=== PATIENT | female | born 1985 | race Caucasian/White ===

== ENCOUNTER → 2021-09-19 17:04 | Outpatient (CLI) | payer OTHER, SELFPAY ==
[2021-09-19 20:39] LABS: Urine N gonorrhoeae NOT DETECTED
[2021-09-19 20:55] LABS: Urine Chlamydia NOT DETECTED
== END ==
PROVIDERS: PCP Emergency Medicine; Visit Provider Obstetrics & Gynecology
DX: Z34.81 Encounter for supervision of other normal pregnancy, first trimester (principal); Z3A.09 9 weeks gestation of pregnancy
CPT/HCPCS: 87491; 87591

== ENCOUNTER → 2021-09-23 11:56 | Outpatient (CLI) | payer OTHER, SELFPAY ==
[2021-09-23 12:57] LABS: Appearance Urine UA CLEAR; Bilirubin Urine UA NEGATIVE (NEGATIVE); Color Urine UA YELLOW; Glucose Urine UA NEGATIVE (Negative); Ketones Urine UA NEGATIVE (NEGATIVE); Leukocyte Esterase Urine UA NEGATIVE (NEGATIVE); Nitrite Urine UA NEGATIVE (Negative); Occult Blood Urine UA NEGATIVE (Negative); Protein Urine UA NEGATIVE (Negative); Specific Gravity Urine UA 1.015 (1.000-1.035); Urobilinogen Urine UA 0.2 E.U./dL (0.2)
[2021-09-23 12:58] LABS: pH Urine UA 7.5 (4.5-8.0)
[2021-09-23 13:01] LABS: Add Manual Diff / Slide Review NO; Basophils Absolute Auto 0 /uL (0-100); Basophils Percent Auto 0.4 % (0-2); Eosinophils Absolute Auto 100 /uL (0-450); Eosinophils Percent Auto 0.6 % (2-4); Hematocrit 38.2 % (36-46); Hemoglobin 13.5 g/dL (12.0-16.0); Lymphocytes Absolute Auto 2300 /uL (1100-4500); Mean Corpuscular HGB Conc 35.2 % (30-36); Mean Corpuscular Hemoglobin 31.5 PG (26-34); Mean Corpuscular Volume 89.7 fL (80-100); Monocytes Absolute Auto 500 /uL (0-900); Monocytes Percent Auto 4.6 % (3-14); Neutrophils Absolute Auto 7400 /uL (1500-7000); Neutrophils Percent Auto 72.4 % (50-75); Platelet Count 255 X10^3/uL (150-400); Red Blood Cell Count 4.26 X10^6/uL (4.0-5.2); Red Cell Distribution Width 13.4 % (11.6-14.8); White Blood Cell Count 10.2 X10^3/uL (4.5-11.0)
[2021-09-23 17:01] LABS: HIV 1 & 2 Ab/Ag 4th Gen Combo NEGATIVE (NEGATIVE); Hep C Virus Ab w/Reflex Quant NEGATIVE s/c (NEGATIVE); Hepatitis B Surface Antigen NEGATIVE s/c (NEGATIVE); Rubella Antibody IgG 30.8 IU/mL (>15)
[2021-09-24 06:08] LABS: RPR Screen Non Reactive (Non Reactive)
[2021-09-24 08:09] LABS: Varicella IgG Antibody 1141 index (Immune >165)
== END ==
PROVIDERS: PCP Emergency Medicine; Referring Provider Obstetrics & Gynecology; Visit Provider Obstetrics & Gynecology
DX: O09.511 Supervision of elderly primigravida, first trimester (principal)
CPT/HCPCS: 36415; 80055; 81003; 86787; 86803; 86850; 86900; 86901; 87086; 87389

== ENCOUNTER → 2021-11-19 14:08 | Outpatient (CLI) | payer OTHER, SELFPAY ==
[2021-11-22 19:31] LABS: Gest Age on Col Date 18.3 weeks (.); Insulin Dep Diabetes No (.); OSBR Risk 1IN 10000 (.); Results Report (.); Test Results *Screen Negative* (.)
== END ==
PROVIDERS: PCP Emergency Medicine; Referring Provider Obstetrics & Gynecology; Visit Provider Obstetrics & Gynecology
DX: Z34.82 Encounter for supervision of other normal pregnancy, second trimester (principal); Z3A.18 18 weeks gestation of pregnancy
CPT/HCPCS: 36415; 82105

== ENCOUNTER → 2021-12-16 10:47 | Outpatient (CLI) | payer OTHER, SELFPAY ==
--- NOTE | 2021-12-16 10:50 | DI.US.S_ITS ---
PROCEDURE: US OB >= 14 WEEKS FETUS INDICATIONS: ANATOMY OUTSIDE/PRIOR DATING DATA: Last menstrual period (LMP): 07/14/2022 LMP-based estimated date of delivery (BLANCA): 04/20/2022 First dating scan (date and location): 12/16/2021 Estimated date of delivery (BLANCA) from first dating scan: 04/16/2022 The calculations are made using the working BLANCA of 04/20/2022 TECHNIQUE: Real-time scanning was performed of the fetus, with image documentation and biometric measurements. Endovaginal scanning: Not indicated COMPARISON: None. FINDINGS: General: A single living intrauterine gestation is present. Presentation: Breech Placenta: Placental position is left posterior, without previa. Amniotic fluid index: 16.7 cm, normal range is 5-24 cm. Single deepest vertical pocket is 6.3 cm. heart rate: 139 beats per minute. Maternal cervical canal: 5.1 cm long. Normal lower limit is 2.5 cm. biometrics: Biparietal diameter: 5.3 cm, 22 weeks, 1 day Head circumference: 20.1 cm, 22 weeks, 2 days Abdominal circumference: 19.1 cm, 23 weeks, 6 days Femur length: 3.8 cm, 22 weeks, 2 days. Clinically estimated gestational age: 22 weeks, 1 day Composite gestational age from present scan: 22 weeks, 5 days Estimated weight and percentile: 557 g, 86% Anatomic survey: Neuro: Ventricles are non-dilated at less than 10 mm. Cisterna magna is normal at 3-11 mm. Cerebellum is normal in size and morphology. Nuchal skin fold: Normal at less than 6 mm between 14-21 weeks gestational age. Face: Nose and lips, facial profile are normal. Spine: No evidence for spina bifida. Heart: 4-chambered heart is present, with normal ventricular outflow tracts. Diaphragm: Diaphragm is intact. Stomach: Left-sided stomach is present. Kidneys: Mild prominence of bilateral renal pelvis is seen measures up to 4.4 mm in diameter on right side and 5.3 mm in diameter on the left side Normal is less than 5 mm in 2nd trimester, less than 7 mm in 3rd trimester. Cord: 3-vessel cord has orthotopic insertion. Bladder: Normal in size. Extremities: All 4 extremities identified. IMPRESSION: 1. Single live intrauterine gestation with fetus in breech presentation. heart rate is 139 beats per minute. Normal amount of amniotic fluid. Estimated weight is at 86%. 2. Borderline bilateral renal pelviectasis worse on the left side, suggest sonographic follow-up. Rest of the anatomic survey is within normal limits. We strive to produce accurate, complete, and clear reports of imaging services. To assist us in improving patient care, this report was composed using standard report templates and voice recognition software. Therefore, it may contain abnormal punctuation, insertions and/or omissions. Occasional wrong-word or sound-alike substitutions may occur. Though we review the report and make efforts to correct it, we do recommend that the report be read carefully in proper context to recognize any text inaccuracies. Dictated by: Nacho Ugalde M.D. on 12/16/2021 at 13:21 Approved by: Nacho Ugalde M.D. on 12/16/2021 at 13:26
== END ==
PROVIDERS: PCP Emergency Medicine; Referring Provider Obstetrics & Gynecology; Visit Provider Obstetrics & Gynecology
DX: Z34.82 Encounter for supervision of other normal pregnancy, second trimester (principal); Z3A.22 22 weeks gestation of pregnancy
CPT/HCPCS: 76811

== ENCOUNTER → 2022-03-27 16:52 | Outpatient (CLI) | payer OTHER, SELFPAY ==
[2022-03-28 14:00] LABS: Strep Grp B PCR POS for Grp B Strep
== END ==
PROVIDERS: PCP Emergency Medicine; Visit Provider Obstetrics & Gynecology
DX: Z34.83 Encounter for supervision of other normal pregnancy, third trimester (principal); Z3A.36 36 weeks gestation of pregnancy
CPT/HCPCS: 87653

== ENCOUNTER 2022-03-31 20:28 | Observation (INO) | payer OTHER, SELFPAY ==
--- NOTE | 2022-03-31 21:06 | P.TNLD_ITS ---
Visit Information Visit Information Date of evaluation: 03/31/22 Primary OB Provider: Lakeshia Bernard On-call OB Provider: Christina Smith Comments/Additional reasons for admission: 37yo at 37w1d here for leaking of fluid. The pt reports feeling a leaking of fluid earlier this evening. She has not continued leaking since then. No vaginal bleeding. She is having more frequent abdominal tightening but does not feel it is painful like a full contraction. 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) Osteopenia (~2009) Surgical History (Updated 08/31/21 @ 21:47 by Loreta Brower) Anesthesia H/O hand surgery (~1990) History of colposcopy with cervical biopsy S/P skin biopsy [place] teeth extracted Family History (Updated 08/31/21 @ 21:49 by Loreta Brower) Grandfather Hypertension High cholesterol Stroke Grandmother Age: 84 Hypertension High cholesterol History of heart disease Grandmother Age: 81 Breast cancer Lung cancer Colon cancer Mental health problem Sister Age: 42 Diabetes mellitus Social History marital status: number of children: 3 (1 is stepchild) household members: spouse and children lives independently: Yes housing: house pets and animals: Yes (2 dogs, cat, livestock) education level: college ([employer] degree) occupational status: employed (desk job; 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[employer]) current occupational exposures/hazards: Yes (aware of farm animal precautions) special jesus needs: No travel history: over 6 months ago seatbelt use: always water heater temp set < 120 deg: Yes working smoke detector in home: Yes fire extinguisher in home: Yes carbon monox detector in home: Yes firearms in home: Yes do you feel safe at home: Yes Smoking Status: Former smoker (Quit age 26) second hand exposure: No alcohol intake: former substance use type: does not use during the past year weight has: remained stable well-balanced diet: daily or most days daily servings fruits/ve-4 caffeine: Yes (Aware of and within 200 mg limit) Type(s) of exercise: walking Evaluation Evaluation Baseline heart rate: 150 Variability: Moderate (11-25) monitor accelerations: Present Monitor Decelerations: Absent Category of Tracing: Reactive Cervical dilation (cm): 1 Cervical effacement (%): 50 station: -1 Comments: Contractions 2-9 minutes apart Diagnosis, Plan/Disposition Final Diagnosis (1) 37 weeks gestation of : Status: Acute Plan/Disposition Plan: 37yo at 37w1d here due to concerns for ROM. Amniosure negative. Pt is having contractions, with hx of rapid labor, but cervical exam unchanged. Stable for d/c home. OB Disposition: home
== END 2022-03-31 21:30 | disposition home or self-care (01) ==
LOC: LABOR 20:33
PROVIDERS: Admitting Provider Family Medicine; PCP Emergency Medicine; Referring Provider Obstetrics & Gynecology; Visit Provider Family Medicine
DX: Z03.71 Encounter for suspected problem with amniotic cavity and membrane ruled out (principal); O47.1 False labor at or after 37 completed weeks of gestation; Z3A.37 37 weeks gestation of pregnancy
CPT/HCPCS: 59025; 84112; G0378; G0379

== ENCOUNTER 2022-04-16 07:02 | Inpatient (IN) | payer BC, SELFPAY ==
[2022-04-16 08:07] VITALS: BP 124/84
[2022-04-16 08:12] LABS: Add Manual Diff / Slide Review NO; Basophils Absolute Auto 0 /uL (0-100); Basophils Percent Auto 0.3 % (0-2); Eosinophils Absolute Auto 200 /uL (0-450); Eosinophils Percent Auto 2.4 % (2-4); Hemoglobin 10.8 g/dL (12.0-16.0); Lymphocytes Absolute Auto 1600 /uL (1100-4500); Lymphocytes Percent Auto 16.9 % (25-40); Mean Corpuscular HGB Conc 33.7 % (30-36); Mean Corpuscular Hemoglobin 30.5 PG (26-34); Mean Corpuscular Volume 90.4 fL (80-100); Monocytes Absolute Auto 800 /uL (0-900); Monocytes Percent Auto 8.1 % (3-14); Neutrophils Absolute Auto 6700 /uL (1500-7000); Neutrophils Percent Auto 72.3 % (50-75); Platelet Count 175 X10^3/uL (150-400); Red Blood Cell Count 3.54 X10^6/uL (4.0-5.2); Red Cell Distribution Width 13.6 % (11.6-14.8); White Blood Cell Count 9.3 X10^3/uL (4.5-11.0)
[2022-04-16 08:29] LABS: COVID19 -Nasal RAPID Negative (Negative)
[2022-04-16] MEDS: AMPICILLIN 2,000 MG in SODIUM CHLORIDE 0.9% 100 ML 200 MG IV (08:29)
[2022-04-16] MEDS: LACTATED RINGERS 1,000 ML 100 ML IV (08:29)
--- NOTE | 2022-04-16 08:29 | PM.OBHP.IH.1 ---
OB HPI Date/Time Date of admission: 04/16/22 Date Patient Seen: 04/16/22 Time Patient Seen: 08:29 History of Present Condition Chief complaint: INDUCTION BLANCA Calculator Estimated Delivery Date Method Current WG Current Estimate 04/20/22 LMP (Certain) 39w 3d Other Estimates 04/16/22 Ultrasound #1 40w 0d Estimated Gestational Age (weeks): 39+3 : 4 Para: 2 care: good care, initiated at week # (9), number of visits (11) and pounds weight gain (25) Dating criteria OB: LMP confirmed by 1st trimester US Ultrasounds: normal 1st trimester US, abnormal US findings (initially thought no corpus callosum, f/u u/s normal at ) and other (borderline pelviectasis) Obstetrical complications: none Medical complications OB: none Indications Indication for induction OB: maternal distance, history of rapid labor (with 2nd) and other (AMA) Preadmission Labs Last OB Lab Results: Blood Type O Positive 09/23/21 12:19 Antibody Screen Negative 09/23/21 12:19 Hematocrit 32.0 % (36-46) L 04/16/22 07:50 Hemoglobin 10.8 g/dL (12.0-16.0) L 04/16/22 07:50 Hepatitis B Surface Antigen Negative s/c (NEGATIVE) 09/23/21 12:19 Hepatitis C Antibody Negative s/c (NEGATIVE) 09/23/21 12:19 Rubella Antibody 30.8 IU/mL (>15) 09/23/21 12:19 Varicella-Zoster IgG Antibody 1141 index (Immune >165) 09/23/21 12:19 Group B Streptococcus (PCR) Pos for grp b strep H 03/27/22 16:52 -: Chlamydia screen: negative, Gonorrhea screen: negative and Urine: negative -: PAP smear: Normal Genetic Screens: Cell-free DNA: Normal and Alpha-fetoprotein: Normal External Labs -: Urine: negative Prior (ies) Past Pregnancies Del. Date GA/Weeks Labor Lgth Wt Sex Route Outcome Anesthesia Place Delv Breastfeed Preg Comp Name 06/15/08 41 16 9 lb 14 oz Male vaginal live - full term IH 10 months none [place] 06/17/11 40 4 Male vaginal live - full term IH 4 months other [place] 08/02/20 11 spontaneous Delivery Date: 06/17/11 Last Updated by: Jennifer Srinivasan RN Relapse of anorexia during that Evaluation Evaluation Baseline heart rate: 145 Variability: Moderate (11-25) monitor accelerations: Present Monitor Decelerations: Absent Contraction Frequency (minutes): 4 Uterine Contraction Intensity: Moderate Status: Category l Dilation (cm): 2 Effacement (%): 75 station: -1 [facility] Medical History (Updated 03/31/22 @ 21:13 by Christina Smith MD) Abnormal Pap smear of cervix (~2018) Anorexia (11/08/10) Anxiety and depression (~2007) Chicken pox COVID-19 Depression 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) Osteopenia (~2009) Surgical History (Updated 08/31/21 @ 21:47 by Loreta Broewr) Anesthesia H/O hand surgery (~1990) History of colposcopy with cervical biopsy S/P skin biopsy [place] teeth extracted Family History (Updated 08/31/21 @ 21:49 by Loreta Brower) Grandfather Hypertension High cholesterol Stroke Grandmother Age: 84 Hypertension High cholesterol History of heart disease Grandmother Age: 81 Breast cancer Lung cancer Colon cancer Mental health problem Sister Age: 42 Diabetes mellitus Social History marital status: number of children: 3 (1 is stepchild) household members: spouse and children lives independently: Yes housing: house pets and animals: Yes (2 dogs, cat, livestock) education level: college ([employer]aura's degree) occupational status: employed (desk job; 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[employer]) current occupational exposures/hazards: Yes (aware of farm animal precautions) special jesus needs: No travel history: over 6 months ago seatbelt use: always water heater temp set < 120 deg: Yes working smoke detector in home: Yes fire extinguisher in home: Yes carbon monox detector in home: Yes firearms in home: Yes do you feel safe at home: Yes Smoking Status: Former smoker second hand exposure: No alcohol intake: former substance use type: does not use during the past year weight has: remained stable well-balanced diet: daily or most days daily servings fruits/ve-4 caffeine: Yes (Aware of and within 200 mg limit) Type(s) of exercise: walking Meds Home Medications and Allergies Home Medications Medication Instructions Recorded Confirmed Type prenat.vits,linda,[id number] 1 tab PO DAILY 08/21/21 04/09/22 History sertraline 150 mg capsule 150 mg PO DAILY 08/21/21 04/09/22 History Allergies Allergy/AdvReac Type Severity Reaction Status Date / Time No Known Allergies Allergy Verified 04/16/22 07:58 OB Exam Narrative Exam Narrative: Generally: Patient is sitting up in bed, no acute distress Lungs: Clear to auscultation bilaterally Cardiovascular: Regular rate and rhythm Fundal height: 40 cm Estimated weight: 8-1/2 lb Extremities: No edema Objective Labs 04/16/22 07:50 Labs: Laboratory Results - last 24 hr 04/16/22 07:50 WBC 9.3 RBC 3.54 L Hgb 10.8 L Hct 32.0 L MCV 90.4 MCH 30.5 MCHC 33.7 RDW 13.6 Plt Count 175 Neut % (Auto) 72.3 Lymph % (Auto) 16.9 L [place] % (Auto) 8.1 Eos % (Auto) 2.4 Baso % (Auto) 0.3 Neut # (Auto) 6700 Lymph # (Auto) 1600 [place] # (Auto) 800 Eos # (Auto) 200 Baso # (Auto) 0 Assessment and Plan Assessment and Plan Assessment and Plan narrative: Assessment: 37-year-old 4 para 2 at 39-,3/7 weeks gestation for induction of labor due to advanced maternal age, maternal distance from the hospital, and history of rapid labor GBS positive Plan: Begin GBS prophylaxis After second dose AROM Low-dose Pitocin if needed Expected management to spontaneous vaginal delivery Time Spent with Patient Total time spent with greater than 50% in coordination of care (as documented) at patient's floor/unit and/or counseling patient:: 15-24 minutes
[2022-04-16 09:45] LABS: Influenza A - CEPHEID Flu A NEGATIVE (NEGATIVE); Influenza B - CEPHEID Flu B NEGATIVE (NEGATIVE); Respiratory Syncytial Virus Negative (Negative)
[2022-04-16 09:46] LABS: COVID-19 CEPHEID 4-PLEX PCR Negative (Negative)
[2022-04-16] MEDS: AMPICILLIN 1,000 MG in SODIUM CHLORIDE 0.9% 100 ML 200 MG IV ×3 (12:58→21:23)
[2022-04-16] MEDS: OXYTOCIN PREMIX 30 UNIT/500 ML PLAST..BAG IV (15:40)
--- NOTE | 2022-04-16 20:41 | PM.OBPNLAB ---
Date/Time Date Patient Seen: 04/16/22 Time Patient Seen: 20:41 Pain Control Pain control: tolerating well Pelvic Exam Dilation (cm): 2 Effacement (%): 75 station: -1 Amniotic membrane status: Intact Contractions Contractions on admission: irregular Monitor mode: External Contraction frequency (min): 5 Contraction duration (min): 1 Contraction pattern: Irregular Contraction intensity: Mild Status status: Category l Heart Rate Baseline: 140 Monitor Accelerations: Present Monitor Decelerations: Absent Monitor Variability: Moderate Assessment and Plan Assessment: induction ongoing Comments: AROM with copious clear amniotic fluid Pitocin if no regular contractions in 3 hours Epidural prn
--- NOTE | 2022-04-16 20:44 | PM.OBPNLAB ---
Date/Time Date Patient Seen: 04/16/22 Time Patient Seen: 20:15 Pain Control Pain control: tolerating well Pelvic Exam Dilation (cm): 4 Effacement (%): 90 station: 0 Amniotic membrane status: Ruptured Contractions Contractions on admission: irregular Monitor mode: External Pitocin rate (mU/min): 2 Contraction frequency (min): 3 Contraction duration (min): 1 Contraction pattern: Irregular Contraction intensity: Strong/Firm Status status: Category l Heart Rate Baseline: 135 Monitor Accelerations: Present Monitor Decelerations: Absent Monitor Variability: Moderate Assessment and Plan Assessment: active labor Comments: Peanut ball Epidural as needed Expectant management to
--- NOTE | 2022-04-17 00:34 | P.PCNOB_ITS ---
Events: Labor Induction Labor & Delivery Delivery date: 04/17/22 Intrapartal Events: Anesthetic Complications (Had a window with the first epidural and had to have it redone) Cervical ripening method: none Induction method: AROM Delivery augmentation: pitocin Delivery monitor: external FHT and external uterine Route of delivery: Episiotomy description: None L&D Laceration Description: None Quantitative Blood Loss: 100 Anesthesia Type: Epidural Complications: None Narrative: Patient complete and pushed for 9 minutes. At 12:11 a.m. a live male delivered spontaneously in the ERMELINDA presentation, over an intact perineum. No nuchal cord. There was a mild shoulder dystocia which only required Immanuel. The was placed on mom's abdomen. Pitocin was given in the IV fluids. The cord was double clamped and cut after it stopped pulsing. The placenta delivered intact with a three-vessel cord at 12:18 a.m.. The fundus was massaged to firm. There were no lacerations noted. Apgars 8 at 1 minute and 9 at 5 minutes. . Epidural analgesia. Mom and stable to recovery. weight 8 lb 15.5 oz. [place] Baby 1: gender: Male Presentation: vertex Position: Left Occiput Anterior Placenta delivery description: Spontaneous Cord Vessel Description: 3 Vessels score (1 min): 8 score (5 min): 9 weight: 8 lb 15.5 oz Plan for aftercare: Routine care
[2022-04-17] MEDS: IBUPROFEN 600 MG TABLET PO ×3 (03:05→15:02)
[2022-04-17] MEDS: ACETAMINOPHEN 325 MG TABLET 650 MG PO ×3 (03:05→15:02)
[2022-04-17] MEDS: SERTRALINE 50 MG TABLET 150 MG PO (08:53)
[2022-04-17] MEDS: DOCUSATE 100 MG CAPSULE PO (08:53)
[2022-04-17] MEDS: PRENATAL VIT,CALC/IRON/FOLIC 1 TABLET 1 TAB PO (08:54)
[2022-04-17 16:54] VITALS: BP 106/62; PULSE 77; RESP 16; TEMP 36.5
[2022-04-17 19:25] VITALS: BP 106/62; PULSE 77; RESP 16; TEMP 36.5
--- NOTE | 2022-04-20 13:40 | PM.OBDS.1 ---
Discharge Providers Provider Date of admission: 04/16/22 07:02 Discharge Date: 04/17/22 Primary care physician: Juliocesar Reza DO Consults: 04/16/22 07:59 Consult to Anesthesiology Urgent Comment: Consulting Provider: Carlos Garber Reason for consultation: Epidural Discharge provider: Lakeshia Bernard MD Summary Hospital Course Date Patient Seen: 04/17/22 Time Patient Seen: 18:30 Diagnoses: 39+3 weeks gestation Advanced maternal age Induction of labor Spontaneous vaginal delivery Hospital Course: Patient is a 37-year-old 4 para 3 who presented on April 16, 2022 for induction of labor at 39 weeks gestation due to advanced maternal age and a history of a rapid delivery. She was given GBS prophylaxis. After the second dose artificial rupture membranes was performed with copious clear amniotic fluid. She received an epidural for pain management. Pitocin augmentation of labor was started. She progressed to complete dilation and had a spontaneous vaginal delivery without complication. She was discharged home on April 17, 2022. was going well. Bleeding was tapering. Peripartum Data Delivery Method: Natural Vaginal Laceration Description: None Procedures: GBS prophylaxis Artificial rupture of membranes Pitocin augmentation of labor Epidural analgesia Spontaneous vaginal delivery complications: none [place] 1: Gender: Male Disposition of : home Status at Discharge Cognitive/behavioral status at discharge: oriented Functional status at discharge: independent ambulation Overall status at discharge: patient is progressing back to baseline Time Spent with Patient Time attestation: Total time spent providing and/or coordinating discharge services: Time spent: Less than 30 minutes Objective Labs 04/16/22 07:50 Exam Narrative Exam Narrative: Generally: Patient is sitting up in bed, no acute distress Fundus: Firm at U -1 Extremities: No edema, negative Homans Discharge Plan Discharge Plan Patient Disposition: Home Provider Discharge Comment: Call with fever, chills, or bleeding vaginally more than a pad in an hour Call with any redness or tenderness in her calves Ibuprofen 600 mg every 6 hours as needed for cramping Tylenol 650 mg every 6 hours as needed Discharge orders & Medications Prescriptions: Continued prenat.vits,linda,[id number] Tablet 1 tab PO DAILY sertraline 150 mg capsule 150 mg PO DAILY Pharmacist Comment: Ibuprofen and Tylenol per bottle directions. Follow up/Referrals: Lakeshia Bernard MD [Physician] - (Appointment with on Saturday, May 27 at 9:30 am for check.) Diet/Activity/Treatments Diet: Regular Activity: Nothing in the vagina for 6 weeks Skin/Wound/Dressing Care Report to your healthcare provider any signs of infection, such as:: chills, fever, increased pain and unusual drainage Visit Report/Discharge Packet Instructions: Labor and Delivery, Vaginal , DI for Labor and Delivery, Vaginal , DI for Depression Stand Alone Forms: Patient Portal/API, Stroke Signs & Symptoms Discharge Data Primary Care Provider: Juliocesar Reza
== END 2022-04-17 20:25 | disposition home or self-care (01) | DRG 807 ==
PROVIDERS: Admitting Provider Obstetrics & Gynecology; PCP Emergency Medicine; Referring Provider Obstetrics & Gynecology; Visit Provider Obstetrics & Gynecology
DX: O99.824 Streptococcus B carrier state complicating childbirth (principal); Z37.0 Single live birth; Z3A.39 39 weeks gestation of pregnancy; Z20.822 Contact with and (suspected) exposure to COVID-19; O35.8XX0 Maternal care for other (suspected) fetal abnormality and damage, not applicable or unspecified
CPT/HCPCS: 0241U; 59050; 59400; 85025; 86850; 86900; 86901; 87635; C9803; G0379; J0290; J2590